=== PATIENT | female | born 1995 | race American Indian/Alaskan Native ===

== ENCOUNTER 2017-08-13 19:17 | Emergency (ER) | payer SELFPAY ==
[2017-08-13] MEDS ORDERED: NORCO 5/325 PO ONE (22:55)
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
[2017-08-14] MEDS ORDERED: BOOSTRIX IM ONE (00:59)
[2017-08-14] MEDS ORDERED: MOTRIN PO ONE (00:59)
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
[2017-08-14 02:33] VITALS: BP 113/76
== END 2017-08-14 01:20 | disposition home or self-care (01) ==
LOC: ED 19:17
DX: S09.90XA Unspecified injury of head, initial encounter (principal); S00.412A Abrasion of left ear, initial encounter; J45.909 Unspecified asthma, uncomplicated; Z91.013 Allergy to seafood; Z91.018 Allergy to other foods; Y04.8XXA Assault by other bodily force, initial encounter; Y93.89 Activity, other specified; Y99.8 Other external cause status; Y92.89 Other specified places as the place of occurrence of the external cause
CPT/HCPCS: 70450; 72125; 90471; 90715; 93005; 93010